=== PATIENT | female | born 1940 | race Two or more races ===

== ENCOUNTER 2023-02-08 10:42 | Inpatient (IN) | payer OTHER ==
[~2023-02-08] VITALS: Ht 157.5 cm; Wt 52.4 kg
[2023-02-08 13:23] VITALS: BP 115/58
[2023-02-08] MEDS ORDERED: ATEN25TA PO (13:38)
[2023-02-08] MEDS ORDERED: NITROGLYCERIN 0.4 MG SL TAB SL PRN (15:45)
[2023-02-08] MEDS ORDERED: HYDROcodone-ACET 5/325MG TAB PO PRN (15:45)
[2023-02-08] MEDS ORDERED: ACETAMINOPHEN 325 MG TAB PO PRN (15:45)
[2023-02-08] MEDS ORDERED: MORPHINE SULFATE INJ 2 MG/ml SYRG IV PRN (15:45)
[2023-02-08] MEDS ORDERED: DOCUSATE SOD 100 MG CAP PO PRN (15:45)
[2023-02-08] MEDS: SODIUM CHLORIDE 0.9% 1,000 ML IV SCH (16:03)
[2023-02-08 17:00] VITALS: BP 115/58
[2023-02-08 20:33] VITALS: BP 158/85
[2023-02-08 22:00] VITALS: BP 157/60
[2023-02-08] MEDS ORDERED: ATENOLOL 25 MG TAB PO SCH (22:00)
[2023-02-09] MEDS: SODIUM CHLORIDE 0.9% 1,000 ML IV SCH ×2 (01:45→11:45)
[2023-02-09 05:00] VITALS: BP 116/56
[2023-02-09 06:36] LABS: Basophils # (auto) 0 10 ^3/uL (0-0.2); Basophils % (auto) 0.7 % (0.0-2.0); Eosinophils # (auto) 0.2 10 ^3/uL (0-0.8); Eosinophils % (auto) 3.5 % (0.0-7.0); Hematocrit 36.8 % (36.0-46.0); Hemoglobin 12.4 g/dL (12.2-16.2); Lymphocytes # (auto) 1.2 10 ^3/uL (0.4-5.4); Lymphocytes % (auto) 27.4 % (10.0-50.0); Mean Corpuscular Hemoglobin 32.4 pg (28.0-32.0); Mean Corpuscular Hgb Conc. 33.7 g/dL (32.0-36.0); Mean Corpuscular Volume 96.1 fL (80.0-100.0); Monocytes # (auto) 0.5 10 ^3/uL (0-1.3); Monocytes % (auto) 10.4 % (0.0-12.0); Neutrophils # (auto) 2.5 10 ^3/uL (1.6-8.6); Nucleated Red Blood Cells % 0.1 %; Red Blood Cells 3.83 10^6/uL (4.0-5.20); Red Cell Distribution Width 12.8 % (11.8-14.3); White Blood Cell 4.3 10^3/uL (4.4-10.8)
[2023-02-09 06:55] LABS: Potassium 4.1 mmol/L (3.5-5.1)
[2023-02-09 07:00] LABS: BUN/Creatinine Ratio 19.6 (10.0-20.0); Calcium 8.6 mg/dL (8.5-10.1)
[2023-02-09 09:00] VITALS: BP 145/53
[2023-02-09] MEDS ORDERED: PANTOPRAZOLE 40 MG TAB PO SCH (10:00)
[2023-02-09] MEDS ORDERED: ENOXAPARIN SOD 40 MG/0.4 ML SYRINGE SC SCH (10:00)
[2023-02-09 13:00] VITALS: BP 158/76
[2023-02-09 15:43] VITALS: BP 158/76
== END 2023-02-09 16:18 | disposition home or self-care (01) | DRG 439 ==
LOC: EAST 10:45 → UNDOADMIN 10:45 → EAST 12:34
PROVIDERS: ADMIT Internal Medicine; ATTEND Internal Medicine
DX: K85.90 Acute pancreatitis without necrosis or infection, unspecified (principal); E87.1 Hypo-osmolality and hyponatremia; K86.1 Other chronic pancreatitis; I10 Essential (primary) hypertension; E11.9 Type 2 diabetes mellitus without complications; Z88.0 Allergy status to penicillin; Z88.1 Allergy status to other antibiotic agents; Z88.2 Allergy status to sulfonamides; Z88.8 Allergy status to other drugs, medicaments and biological substances; Z90.49 Acquired absence of other specified parts of digestive tract
CPT/HCPCS: 36415; 80048; 85025; G0378

== ENCOUNTER 2023-02-27 04:28 | Inpatient (IN) | payer OTHER ==
[~2023-02-27] VITALS: Ht 160 cm; Wt 50.8 kg
[~2023-02-27 04:28] MED LIST: ATEN25TA PO
[2023-02-27 05:34] LABS: Urine Bacteria NONE SEEN /hpf (None Seen); Urine Blood TRACE /uL (Negative); Urine Specific Gravity 1.002 (1.001-1.035); Urine WBC <1 /hpf (0 - 5)
[2023-02-27] MEDS ORDERED: LIDOCAINE VISCOUS 2% 15ML UD PO ONE (07:15)
[2023-02-27] MEDS ORDERED: FAMOTIDINE 20 MG TAB PO ONE (07:15)
[2023-02-27] MEDS ORDERED: MAALOX PLUS or MAALOX 30 ML PO ONE (07:15)
[2023-02-27] MEDS ORDERED: ONDANSETRON ODT 4 MG TAB PO ONE (07:15)
[2023-02-27 07:32] LABS: Basophils # (auto) 0 10 ^3/uL (0-0.2); Basophils % (auto) 0.6 % (0.0-2.0); Eosinophils # (auto) 0.1 10 ^3/uL (0-0.8); Eosinophils % (auto) 1.9 % (0.0-7.0); Lymphocytes # (auto) 1.4 10 ^3/uL (0.4-5.4); Lymphocytes % (auto) 21.8 % (10.0-50.0); Mean Corpuscular Hemoglobin 32.5 pg (28.0-32.0); Mean Corpuscular Hgb Conc. 34.2 g/dL (32.0-36.0); Monocytes # (auto) 0.5 10 ^3/uL (0-1.3); Monocytes % (auto) 7.2 % (0.0-12.0); Neutrophils # (auto) 4.4 10 ^3/uL (1.6-8.6); Neutrophils % (auto) 68.5 % (37.0-80.0); Nucleated Red Blood Cells % 0.1 %; Red Blood Cells 4.32 10^6/uL (4.0-5.20); Red Cell Distribution Width 12.7 % (11.8-14.3); White Blood Cell 6.5 10^3/uL (4.4-10.8)
[2023-02-27 07:47] LABS: Albumin 4.2 g/dL (3.4-5.0); Calcium 9.1 mg/dL (8.5-10.1); Potassium 4.3 mmol/L (3.5-5.1)
[2023-02-27 07:50] LABS: BUN/Creatinine Ratio 20.8 (10.0-20.0); Bilirubin, Total 0.5 mg/dL (0.2-1.0); Total Protein 8.2 g/dL (6.4-8.2)
[2023-02-27] MEDS ORDERED: SODIUM CHLORIDE 0.9% 1,000 ML IV ONE (10:30)
[2023-02-27] MEDS ORDERED: LACTATED RINGER'S 1,000 ML IV ONE (10:30)
[2023-02-27] MEDS ORDERED: NITROGLYCERIN 0.4 MG SL TAB SL PRN (21:15)
[2023-02-27] MEDS ORDERED: ACETAMINOPHEN 325 MG TAB PO PRN (21:15)
[2023-02-27] MEDS ORDERED: MORPHINE SULFATE INJ 2 MG/ml SYRG IV PRN (21:15)
[2023-02-27] MEDS ORDERED: HYDROcodone-ACET 5/325MG TAB PO PRN (21:15)
[2023-02-27] MEDS ORDERED: ONDANSETRON HCL 4 MG/2 ML VIAL IV PRN (21:15)
[2023-02-27] MEDS: PANTOPRAZOLE 40 MG/10 ML VIAL INJ IV SCH (22:33)
[2023-02-28 04:49] LABS: Basophils # (auto) 0 10 ^3/uL (0-0.2); Basophils % (auto) 0.7 % (0.0-2.0); Eosinophils # (auto) 0.2 10 ^3/uL (0-0.8); Eosinophils % (auto) 3.7 % (0.0-7.0); Hematocrit 40.5 % (36.0-46.0); Hemoglobin 13.8 g/dL (12.2-16.2); Lymphocytes # (auto) 1.9 10 ^3/uL (0.4-5.4); Lymphocytes % (auto) 35.8 % (10.0-50.0); Mean Corpuscular Hemoglobin 32.7 pg (28.0-32.0); Mean Corpuscular Hgb Conc. 34.2 g/dL (32.0-36.0); Mean Corpuscular Volume 95.7 fL (80.0-100.0); Monocytes # (auto) 0.4 10 ^3/uL (0-1.3); Monocytes % (auto) 7.4 % (0.0-12.0); Neutrophils # (auto) 2.8 10 ^3/uL (1.6-8.6); Neutrophils % (auto) 52.4 % (37.0-80.0); Red Blood Cells 4.23 10^6/uL (4.0-5.20); Red Cell Distribution Width 12.9 % (11.8-14.3); White Blood Cell 5.3 10^3/uL (4.4-10.8)
[2023-02-28 05:07] LABS: BUN/Creatinine Ratio 24.3 (10.0-20.0); Calcium 9.2 mg/dL (8.5-10.1); Potassium 4.1 mmol/L (3.5-5.1)
[2023-02-28] MEDS ORDERED: OMEP1CAP70 PO (09:19)
[2023-02-28] MEDS: PANTOPRAZOLE 40 MG/10 ML VIAL INJ IV SCH (09:39)
[2023-02-28 09:58] VITALS: BP 146/73
[2023-02-28 16:15] VITALS: BP 162/70
[2023-02-28 22:00] VITALS: BP 113/53
[2023-03-01 05:00] VITALS: BP 146/74
[2023-03-01 06:05] LABS: Calcium 9.2 mg/dL (8.5-10.1); Potassium 4.5 mmol/L (3.5-5.1)
[2023-03-01 06:08] LABS: BUN/Creatinine Ratio 27.9 (10.0-20.0)
[2023-03-01 07:34] LABS: Basophils # (auto) 0 10 ^3/uL (0-0.2); Basophils % (auto) 0.7 % (0.0-2.0); Eosinophils # (auto) 0.2 10 ^3/uL (0-0.8); Eosinophils % (auto) 3.5 % (0.0-7.0); Hematocrit 39.9 % (36.0-46.0); Hemoglobin 13.5 g/dL (12.2-16.2); Lymphocytes # (auto) 1.7 10 ^3/uL (0.4-5.4); Lymphocytes % (auto) 30.2 % (10.0-50.0); Mean Corpuscular Hemoglobin 32.8 pg (28.0-32.0); Mean Corpuscular Hgb Conc. 33.9 g/dL (32.0-36.0); Mean Corpuscular Volume 96.8 fL (80.0-100.0); Monocytes # (auto) 0.5 10 ^3/uL (0-1.3); Neutrophils # (auto) 3.2 10 ^3/uL (1.6-8.6); Neutrophils % (auto) 56.6 % (37.0-80.0); Nucleated Red Blood Cells % 0.1 %; Red Blood Cells 4.12 10^6/uL (4.0-5.20); Red Cell Distribution Width 12.8 % (11.8-14.3); White Blood Cell 5.6 10^3/uL (4.4-10.8)
[2023-03-01] MEDS: PANTOPRAZOLE 40 MG/10 ML VIAL INJ IV SCH (08:57)
[2023-03-01 09:00] VITALS: BP_SYST 131; BP_SYST 165; BP_DIAS 69; BP_DIAS 92
[2023-03-01 12:34] VITALS: BP 121/74
[2023-03-01 13:00] VITALS: BP 121/74
[2023-03-02] MEDS ORDERED: PANT40T PO (05:00)
== END 2023-03-01 14:04 | disposition home or self-care (01) | DRG 392 ==
LOC: ER 04:28 → TELE 21:14 → TELE-WESTW 02-28 10:09
PROVIDERS: ADMIT Nurse Practitioner Family; ATTEND Internal Medicine
DX: R10.9 Unspecified abdominal pain (principal); R07.9 Chest pain, unspecified; I44.7 Left bundle-branch block, unspecified; I10 Essential (primary) hypertension; Z83.3 Family history of diabetes mellitus; Z86.19 Personal history of other infectious and parasitic diseases; Z88.0 Allergy status to penicillin; Z88.1 Allergy status to other antibiotic agents; Z88.2 Allergy status to sulfonamides; Z88.8 Allergy status to other drugs, medicaments and biological substances
CPT/HCPCS: 36415; 71045; 74176; 80048; 80053; 81001; 82270; 83690; 83880; 84484; 85025; 85048; 86677; 87045; 87427; 93005; 93306; 96361; 96374; C9113; G0378; Q0162

== ENCOUNTER 2024-04-19 10:54 | Emergency (ER) | payer OTHER ==
[~2024-04-19] VITALS: Ht 160 cm; Wt 55.1 kg
[~2024-04-19 10:54] MED LIST changes: +PANT40T PO
[2024-04-19 11:38] LABS: Basophils # (auto) 0 10 ^3/uL (0-0.2); Basophils % (auto) 0.6 % (0.0-2.0); Eosinophils # (auto) 0.1 10 ^3/uL (0-0.8); Eosinophils % (auto) 1.1 % (0.0-7.0); Hematocrit 40.3 % (36.0-46.0); Hemoglobin 13.8 g/dL (12.2-16.2); Lymphocytes # (auto) 1.4 10 ^3/uL (0.4-5.4); Lymphocytes % (auto) 25.6 % (10.0-50.0); Mean Corpuscular Hemoglobin 32.8 pg (28.0-32.0); Mean Corpuscular Hgb Conc. 34.2 g/dL (32.0-36.0); Mean Corpuscular Volume 95.8 fL (80.0-100.0); Monocytes # (auto) 0.4 10 ^3/uL (0-1.3); Monocytes % (auto) 7.2 % (0.0-12.0); Neutrophils # (auto) 3.5 10 ^3/uL (1.6-8.6); Neutrophils % (auto) 65.5 % (37.0-80.0); Red Blood Cells 4.21 10^6/uL (4.0-5.20); Red Cell Distribution Width 12.9 % (11.8-14.3); White Blood Cell 5.4 10^3/uL (4.4-10.8)
[2024-04-19 11:54] LABS: Chloride 99 mmol/L (98-107); Potassium 4.8 mmol/L (3.5-5.1); Sodium 130 mmol/L (136-145)
[2024-04-19 11:55] LABS: Anion Gap 4 (5-15); Carbon Dioxide 27 mmol/L (20-30)
[2024-04-19 11:56] LABS: Calcium 9.5 mg/dL (8.7-10.4)
[2024-04-19 12:01] LABS: BUN/Creatinine Ratio 24.6 (10.0-20.0); Blood Urea Nitrogen 16 mg/dL (9-23); Glucose 100 mg/dL (74-106)
[2024-04-19] MEDS: DIPHENOXYLATE W/ATROPINE 2.5 MG TAB PO ONE (12:11)
[2024-04-19] MEDS: cloNIDine HCL 0.1 MG TAB PO ONE (12:17)
[2024-04-19] MEDS: cloNIDine HCL 0.1 MG TAB ONE (12:19)
[2024-04-19 15:09] VITALS: PULSE 94; RESP 19; O2SAT 97
[2024-04-19] MEDS ORDERED: METR-344 PO (15:47)
[2024-04-19 16:19] VITALS: BP 140/71; PULSE 60; RESP 18; TEMP 97.6; O2SAT 98
[2024-04-20] MEDS ORDERED: LEVO500T91 PO (05:00)
== END 2024-04-19 16:22 | disposition home or self-care (01) ==
LOC: ER 10:54
DX: K52.9 Noninfective gastroenteritis and colitis, unspecified (principal); I10 Essential (primary) hypertension; Z88.1 Allergy status to other antibiotic agents; Z88.0 Allergy status to penicillin; Z88.2 Allergy status to sulfonamides; Z88.8 Allergy status to other drugs, medicaments and biological substances
CPT/HCPCS: 36415; 80048; 84484; 85025

== ENCOUNTER 2024-04-19 20:36 | Emergency (ER) | payer OTHER ==
[~2024-04-19] VITALS: Ht 160 cm; Wt 54.8 kg
[~2024-04-19 20:36] MED LIST changes: +METR-344 PO
[2024-04-19 22:02] LABS: Urine Bacteria None Seen /hpf (None Seen)
[2024-04-19 22:24] LABS: Urine Blood TRACE /uL (Negative); Urine Clarity Clear (Clear); Urine Color Colorless (Yellow); Urine Protein, UAD Negative (Negative); Urine Specific Gravity 1.002 (1.001-1.035); Urine Urobilinogen Normal (Negative); Urine WBC <1 /hpf (0 - 5); Urine pH 6.5 (5.0-9.0)
[2024-04-19] MEDS: SODIUM CHLORIDE 0.9% 1,000 ML IV ONE (22:30)
[2024-04-19 22:35] LABS: Basophils # (auto) 0 10 ^3/uL (0-0.2); Basophils % (auto) 0.6 % (0.0-2.0); Eosinophils # (auto) 0.1 10 ^3/uL (0-0.8); Eosinophils % (auto) 1.6 % (0.0-7.0); Hematocrit 37.2 % (36.0-46.0); Hemoglobin 12.8 g/dL (12.2-16.2); Lymphocytes % (auto) 32.5 % (10.0-50.0); Mean Corpuscular Hemoglobin 32.5 pg (28.0-32.0); Mean Corpuscular Hgb Conc. 34.3 g/dL (32.0-36.0); Mean Corpuscular Volume 94.8 fL (80.0-100.0); Monocytes # (auto) 0.5 10 ^3/uL (0-1.3); Monocytes % (auto) 8.4 % (0.0-12.0); Neutrophils # (auto) 3.5 10 ^3/uL (1.6-8.6); Neutrophils % (auto) 56.9 % (37.0-80.0); Nucleated Red Blood Cells % 0.1 %; Red Blood Cells 3.92 10^6/uL (4.0-5.20); White Blood Cell 6.2 10^3/uL (4.4-10.8)
[2024-04-19 22:52] LABS: Alanine Aminotransferase 28 U/L (7-40); Albumin 4.2 g/dL (3.2-4.8); Alkaline Phosphatase 49 U/L (46-116); Anion Gap 4 (5-15); Aspartate Aminotransferase 51 U/L (13-40); Bilirubin, Total 0.8 mg/dL (0.2-1.0); Calcium 9.4 mg/dL (8.7-10.4); Carbon Dioxide 24 mmol/L (20-30); Chloride 99 mmol/L (98-107); Glucose 98 mg/dL (74-106); Lipase 72 U/L (12-53); Potassium 3.8 mmol/L (3.5-5.1); Sodium 127 mmol/L (136-145); Total Protein 7.5 g/dL (5.7-8.2)
[2024-04-19 23:02] LABS: BUN/Creatinine Ratio 10.9 (10.0-20.0); Blood Urea Nitrogen 7 mg/dL (9-23)
[2024-04-20 01:47] VITALS: BP 164/64; PULSE 55; RESP 18; O2SAT 99
[2024-04-20] MEDS ORDERED: LEVO500T91 PO (05:00)
== END 2024-04-20 01:59 | disposition home or self-care (01) ==
LOC: ER 20:36
DX: K52.9 Noninfective gastroenteritis and colitis, unspecified (principal); N39.0 Urinary tract infection, site not specified; I10 Essential (primary) hypertension; Z88.1 Allergy status to other antibiotic agents; Z88.0 Allergy status to penicillin; Z88.2 Allergy status to sulfonamides; Z88.8 Allergy status to other drugs, medicaments and biological substances
CPT/HCPCS: 36415; 80053; 81001; 83690; 84484; 85025; 93005

== ENCOUNTER 2024-05-25 23:49 | Emergency (ER) | payer OTHER ==
[~2024-05-25] VITALS: Ht 160 cm; Wt 52.3 kg
[~2024-05-25 23:49] MED LIST changes: +LEVO500T91 PO; -METR-344 PO
[2024-05-26 01:43] LABS: Urine Bacteria None Seen /hpf (None Seen)
[2024-05-26 02:19] LABS: Urine Blood TRACE /uL (Negative); Urine Clarity Clear (Clear); Urine Color Colorless (Yellow); Urine Protein, UAD Negative (Negative); Urine Specific Gravity 1.003 (1.001-1.035); Urine Urobilinogen Normal (Negative); Urine WBC 57 /hpf (0 - 5)
[2024-05-26 05:30] VITALS: PULSE 80; RESP 19; O2SAT 96
[2024-05-26 08:13] VITALS: PULSE 57; RESP 19; O2SAT 96
[2024-05-26] MEDS ORDERED: LOPERAMIDE 1 mg/7.5ml ORAL soln GT ONE (08:15)
[2024-05-26] MEDS: SODIUM CHLORIDE 0.9% 1,000 ML IV ONE (08:35)
[2024-05-26] MEDS: LOPERAMIDE HCL 2 MG CAP/TAB PO ONE (08:46)
[2024-05-26 09:05] LABS: Basophils # (auto) 0 10 ^3/uL (0-0.2); Basophils % (auto) 0.4 % (0.0-2.0); Eosinophils # (auto) 0.1 10 ^3/uL (0-0.8); Eosinophils % (auto) 1.4 % (0.0-7.0); Hematocrit 40.5 % (36.0-46.0); Hemoglobin 13.9 g/dL (12.2-16.2); Lymphocytes # (auto) 1.7 10 ^3/uL (0.4-5.4); Lymphocytes % (auto) 26.4 % (10.0-50.0); Mean Corpuscular Hemoglobin 33.1 pg (28.0-32.0); Mean Corpuscular Hgb Conc. 34.3 g/dL (32.0-36.0); Mean Corpuscular Volume 96.6 fL (80.0-100.0); Monocytes # (auto) 0.5 10 ^3/uL (0-1.3); Monocytes % (auto) 7.5 % (0.0-12.0); Neutrophils # (auto) 4.1 10 ^3/uL (1.6-8.6); Neutrophils % (auto) 64.3 % (37.0-80.0); Nucleated Red Blood Cells % 0.1 %; Platelet Count (auto) 203 10^3/uL (140-450); Red Blood Cells 4.19 10^6/uL (4.0-5.20); Red Cell Distribution Width 13.1 % (11.8-14.3); White Blood Cell 6.4 10^3/uL (4.4-10.8)
[2024-05-26 09:15] LABS: Alanine Aminotransferase 24 U/L (7-40); Albumin 4.5 g/dL (3.2-4.8); Alkaline Phosphatase 65 U/L (46-116); Anion Gap 6 (5-15); Aspartate Aminotransferase 29 U/L (13-40); BUN/Creatinine Ratio 14.3 (10.0-20.0); Bilirubin, Total 0.6 mg/dL (0.2-1.0); Blood Urea Nitrogen 10 mg/dL (9-23); Calcium 10.2 mg/dL (8.7-10.4); Carbon Dioxide 27 mmol/L (20-30); Chloride 101 mmol/L (98-107); Glucose 92 mg/dL (74-106); Potassium 3.9 mmol/L (3.5-5.1); Sodium 134 mmol/L (136-145); Total Protein 8.1 g/dL (5.7-8.2)
[2024-05-26] MEDS ORDERED: PHEN97.53 PO (09:33)
[2024-05-26] MEDS ORDERED: CEPH250C PO (09:33)
[2024-05-26 10:01] VITALS: BP 183/80; PULSE 66; RESP 18; TEMP 98.6; O2SAT 97
== END 2024-05-26 10:03 | disposition home or self-care (01) ==
LOC: ER 23:49
DX: K52.9 Noninfective gastroenteritis and colitis, unspecified (principal); N39.0 Urinary tract infection, site not specified; I10 Essential (primary) hypertension; Z88.0 Allergy status to penicillin; Z88.1 Allergy status to other antibiotic agents; Z88.6 Allergy status to analgesic agent; Z88.8 Allergy status to other drugs, medicaments and biological substances
CPT/HCPCS: 36415; 80053; 81001; 85025; 93005; 96360; 99284; J7030

== ENCOUNTER 2025-07-18 02:51 | Emergency (ER) | payer OTHER ==
[~2025-07-18] VITALS: Ht 160 cm; Wt 54.3 kg
[~2025-07-18 02:51] MED LIST changes: +CEPH250C PO; +PHEN97.53 PO
[2025-07-18 03:09] VITALS: BP 174/89; PULSE 55; RESP 12; TEMP 97.6; O2SAT 99
== END 2025-07-18 04:04 | disposition left against medical advice (07) ==
LOC: ER 02:51
DX: R10.9 Unspecified abdominal pain (principal); Z53.21 Procedure and treatment not carried out due to patient leaving prior to being seen by health care provider